=== PATIENT | female | born 1960 | race Caucasian/White ===

== ENCOUNTER → 2019-07-13 09:56 | Outpatient (BNVA) | payer MEDICAID, SELFPAY | PROVIDERS: Family Provider Physician Assistant Medical; PCP Physician Assistant Medical; Visit Provider Anesthesiology | DX: M54.9 Dorsalgia, unspecified (principal); M54.2 Cervicalgia; G56.03 Carpal tunnel syndrome, bilateral upper limbs; F17.210 Nicotine dependence, cigarettes, uncomplicated; Z79.891 Long term (current) use of opiate analgesic | CPT/HCPCS: 99214 ==

== ENCOUNTER → 2019-08-17 14:57 | Outpatient (BNVA) | payer MEDICAID, SELFPAY | PROVIDERS: Family Provider Physician Assistant Medical; PCP Physician Assistant Medical; Visit Provider Anesthesiology | DX: M54.2 Cervicalgia (principal); M25.511 Pain in right shoulder; M25.512 Pain in left shoulder; M54.9 Dorsalgia, unspecified; F17.210 Nicotine dependence, cigarettes, uncomplicated; Z79.891 Long term (current) use of opiate analgesic; Z71.6 Tobacco abuse counseling | CPT/HCPCS: 99214 ==

== ENCOUNTER → 2019-10-10 09:17 | Outpatient (BNVA) | payer MEDICAID, SELFPAY | PROVIDERS: Family Provider Physician Assistant Medical; PCP Physician Assistant Medical; Visit Provider Anesthesiology | DX: M54.2 Cervicalgia (principal); M54.9 Dorsalgia, unspecified; M25.511 Pain in right shoulder; M25.512 Pain in left shoulder; F17.210 Nicotine dependence, cigarettes, uncomplicated; Z79.891 Long term (current) use of opiate analgesic; Z71.6 Tobacco abuse counseling | CPT/HCPCS: 99214 ==

== ENCOUNTER → 2019-12-05 08:57 | Outpatient (BNVA) | payer MEDICAID, SELFPAY | PROVIDERS: Family Provider Physician Assistant Medical; PCP Physician Assistant Medical; Visit Provider Anesthesiology | DX: M54.2 Cervicalgia (principal); M54.41 Lumbago with sciatica, right side; M54.42 Lumbago with sciatica, left side; M54.9 Dorsalgia, unspecified; F17.210 Nicotine dependence, cigarettes, uncomplicated; Z79.891 Long term (current) use of opiate analgesic | CPT/HCPCS: 99214 ==

== ENCOUNTER → 2020-02-06 08:05 | Outpatient (BNVA) | payer MEDICAID, SELFPAY | PROVIDERS: Family Provider Physician Assistant Medical; PCP Physician Assistant Medical; Visit Provider Anesthesiology | DX: M54.42 Lumbago with sciatica, left side (principal); M54.41 Lumbago with sciatica, right side; M54.2 Cervicalgia; M54.9 Dorsalgia, unspecified; F17.210 Nicotine dependence, cigarettes, uncomplicated; Z79.891 Long term (current) use of opiate analgesic | CPT/HCPCS: 99214 ==

== ENCOUNTER → 2020-02-23 10:08 | Outpatient (BNVA) | payer MEDICAID, SELFPAY | PROVIDERS: Family Provider Physician Assistant Medical; PCP Physician Assistant Medical; Visit Provider Anesthesiology | DX: M54.2 Cervicalgia (principal); M54.41 Lumbago with sciatica, right side; M54.42 Lumbago with sciatica, left side; M54.9 Dorsalgia, unspecified; F17.210 Nicotine dependence, cigarettes, uncomplicated; Z79.891 Long term (current) use of opiate analgesic | CPT/HCPCS: 99214 ==

== ENCOUNTER → 2020-03-14 08:52 | Outpatient (BNVA) | payer MEDICAID, SELFPAY | PROVIDERS: Family Provider Physician Assistant Medical; PCP Physician Assistant Medical; Visit Provider Anesthesiology | DX: M54.9 Dorsalgia, unspecified (principal); M54.2 Cervicalgia; F17.210 Nicotine dependence, cigarettes, uncomplicated; Z79.891 Long term (current) use of opiate analgesic | CPT/HCPCS: 99213; 99214 ==

== ENCOUNTER → 2020-05-09 08:40 | Outpatient (BNVA) | payer MEDICAID, SELFPAY | PROVIDERS: Family Provider Physician Assistant Medical; PCP Physician Assistant Medical; Visit Provider Anesthesiology | DX: M54.9 Dorsalgia, unspecified (principal); M54.2 Cervicalgia; F17.210 Nicotine dependence, cigarettes, uncomplicated; Z79.891 Long term (current) use of opiate analgesic | CPT/HCPCS: 99213; 99214 ==

== ENCOUNTER → 2020-06-05 08:44 | Outpatient (BNVA) | payer MEDICAID, SELFPAY | PROVIDERS: Family Provider Physician Assistant Medical; PCP Physician Assistant Medical; Visit Provider Nurse Practitioner | DX: M54.41 Lumbago with sciatica, right side (principal); M54.42 Lumbago with sciatica, left side; M54.9 Dorsalgia, unspecified; M54.2 Cervicalgia; F17.210 Nicotine dependence, cigarettes, uncomplicated; Z79.891 Long term (current) use of opiate analgesic; Z71.6 Tobacco abuse counseling | CPT/HCPCS: 99213; 99214 ==

== ENCOUNTER → 2020-07-10 09:43 | Outpatient (BNVA) | payer MEDICAID, SELFPAY | PROVIDERS: Family Provider Physician Assistant Medical; PCP Physician Assistant Medical; Visit Provider Nurse Practitioner | DX: M54.9 Dorsalgia, unspecified (principal); M54.2 Cervicalgia; G56.03 Carpal tunnel syndrome, bilateral upper limbs; F17.210 Nicotine dependence, cigarettes, uncomplicated; Z79.891 Long term (current) use of opiate analgesic; Z71.6 Tobacco abuse counseling | CPT/HCPCS: 99213; 99214 ==

== ENCOUNTER → 2020-09-10 12:30 | Outpatient (BNVA) | payer MEDICAID, SELFPAY | PROVIDERS: Family Provider Physician Assistant Medical; PCP Physician Assistant Medical; Visit Provider Anesthesiology | DX: M54.9 Dorsalgia, unspecified (principal); M54.2 Cervicalgia; F17.210 Nicotine dependence, cigarettes, uncomplicated; Z79.891 Long term (current) use of opiate analgesic; Z71.6 Tobacco abuse counseling | CPT/HCPCS: 99214 ==

== ENCOUNTER → 2020-11-14 09:21 | Outpatient (BNVA) | payer MEDICAID, SELFPAY | PROVIDERS: Family Provider Physician Assistant Medical; PCP Physician Assistant Medical; Visit Provider Nurse Practitioner | DX: M54.9 Dorsalgia, unspecified (principal); M54.2 Cervicalgia; F17.210 Nicotine dependence, cigarettes, uncomplicated | CPT/HCPCS: 99212; 99213 ==

== ENCOUNTER → 2020-12-12 10:23 | Outpatient (BNVA) | payer MEDICAID, SELFPAY | PROVIDERS: Family Provider Physician Assistant Medical; PCP Physician Assistant Medical; Visit Provider Nurse Practitioner | DX: M54.9 Dorsalgia, unspecified (principal); M54.2 Cervicalgia; F17.210 Nicotine dependence, cigarettes, uncomplicated; Z79.891 Long term (current) use of opiate analgesic; Z71.6 Tobacco abuse counseling | CPT/HCPCS: 99214 ==

== ENCOUNTER 2022-10-26 07:21 | Outpatient (CLI) | payer MEDICAID, SELFPAY ==
--- NOTE | 2022-10-26 07:34 | MM_ITS ---
WS: [id number] BILATERAL SCREENING DIGITAL TOMOSYNTHESIS MAMMOGRAM WITH CAD HISTORY: SCREENING COMPARISON: 07/25/2020 and 11/24/2018 Bilateral CC and MLO views with tomosynthesis and synthetic mammography submitted. Computer aided det ection analyzed. Breast composition: The breasts are heterogeneously dense, which may obscure small masses. No suspici ous masses, microcalcifications or architectural distortion. Benign scattered calcifications LEFT leon ast. MM/[place] [id number] IMPRESSION: BI-RADS: 2-Benign FOLLOW UP: 1 Year Follow-up
== END 2022-10-26 07:22 | disposition home or self-care (01) ==
LOC: RAD 07:24
PROVIDERS: PCP Family Medicine; Visit Provider Family Medicine
DX: Z12.31 Encounter for screening mammogram for malignant neoplasm of breast (principal)
CPT/HCPCS: 77063; 77067

== ENCOUNTER 2024-06-22 19:42 | Emergency (ER) | payer MEDICAID, SELFPAY ==
--- NOTE | 2024-06-22 19:50 | XRR_ITS ---
PROCEDURE INFORMATION: Exam: XR Chest Exam date and time: 06/22/2024 8:30 PM Age: 63 years old Clinical indication: Other: Weakness TECHNIQUE: Imaging protocol: Radiologic exam of the chest. Views: 1 view. COMPARISON: CR XR chest 1V [id number] 01/12/2019 1:48 PM FINDINGS: Lungs: Unremarkable. No consolidation. Pleural spaces: Unremarkable. No pleural effusion. No pneumothorax. Heart/Mediastinum: Unremarkable. No cardiomegaly. Bones/joints: Unremarkable. Other findings: Stable strandy opacities are seen in the left lower likely representing scarring. XR/XR chest 1V portable [id number] IMPRESSION: There are no acute chest findings. Stable appearance of the chest compared with 01/12/2019.
--- NOTE | 2024-06-22 19:52 | ED_ITS ---
HPI - Syncope 2 General: Chief Complaint: Syncope Stated Complaint: Syncope, Poss UTI, Time Seen by Provider: 06/22/24 19:47 History of Present Illness: 63-year-old female who was at home and s tood up and had a syncopal episode. EMS reports that when they arrived she was slightly hypotensive. She has received some fluids. Blood pressures improved. She says she does not feel bad. She does think she may have a UTI though. She says the last time this happened she had a UTI. She has no chest pain. No abdominal pain. She had some nausea but is no longer nauseous. No chest pain. No altered mental status. No focal motor deficits. No fevers. No cough. Related Data Home Medications Medication Instructions Recorded Confirmed clopidogrel 75 mg tablet (Plavix) 75 mg PO ONCE 07/12/19 12/12/20 metformin 500 mg tablet 500 mg PO BID 07/12/19 12/12/20 rosuvastatin 40 mg tablet 40 mg PO ONCE 07/12/19 12/12/20 venlafaxine 150 mg 150 mg PO QAM 07/12/19 12/12/20 capsule,extended release 24 hr (Effexor XR) venlafaxine 75 mg capsule,extended 75 mg PO QAM 07/12/19 12/12/20 release 24 hr (Effexor XR) aripiprazole 5 mg tablet 5 mg PO DAILY 10/10/19 12/12/20 aspirin 81 mg chewable tablet 81 mg PO DAILY 10/10/19 12/12/20 amlodipine 10 mg tablet 10 mg PO DAILY 06/05/20 12/12/20 gabapentin 100 mg capsule 100 mg PO .4 daily 11/14/20 12/12/20 gabapentin 800 mg tablet 800 mg PO .4 day 11/14/20 12/12/20 glipizide 5 mg tablet 5 mg PO DAILY 11/14/20 12/12/20 lisinopril 2.5 mg tablet 2.5 mg PO DAILY 11/14/20 12/12/20 trazodone 50 mg tablet 25 mg PO ONCE 11/14/20 12/12/20 valacyclovir 500 mg tablet 500 mg PO ONCE 11/14/20 12/12/20 Previous Rx's Medication Instructions Recorded oxycodone 15 mg tablet 15 mg PO QID PRN pain (scale score 12/12/20 4-6) 30 days #120 tabs oxycodone 15 mg tablet 15 mg PO QID PRN pain 30 days #120 12/12/20 tabs tizanidine 4 mg tablet 4 mg PO TID PRN muscle spasticity 12/12/20 #90 tabs cefdinir 300 mg capsule 300 mg PO BID 5 days #10 caps 06/22/24 Allergies Allergy/AdvReac Type Severity Reaction Status Date / Time codeine Allergy ADR-Seizure Verified 12/12/20 10:27 diazepam [From Valium] Allergy Unknown Verified 12/12/20 10:27 ibuprofen Allergy Unknown Verified 12/12/20 10:27 latex Allergy ADR-Itching Verified 12/12/20 10:27 tramadol Allergy ADR-Itching Verified 12/12/20 10:27 oxycodone AdvReac ADR-Itching Verified 12/12/20 10:27 Review of Systems 2 Narrative: Constitutional symptoms: Negative except as documented in HPI. Skin symptoms: Negative except as documented in HPI. Eye symptoms: Negative except as documented in HPI. ENMT symptoms: Negative except as documented in HPI. Respiratory symptoms: Negative except as documented in HPI. Cardiovascular symptoms: Negative except as documented in HPI. Gastrointestinal symptoms: Negative except as documented in HPI. Genitourinary symptoms: Negative except as documented in HPI. Musculoskeletal symptoms: Negative except as documented in HPI. Neurologic symptoms: Negative except as documented in HPI. Psychiatric symptoms: Negative except as documented in HPI. Endocrine symptoms: Negative except as documented in HPI. PFSH ED 2 PFSH: Medical History (Updated 06/22/24 @ 23:40 by Cristiana Hopper MD) Opioid contract exists Encounter for long-term use of opiate analgesic Back Pain Neck pain Current tobacco use Bilateral carpal tunnel syndrome Surgical History H/O tubal ligation Previous back surgery Status post carotid surgery Social History Smoking and tobacco/nicotine status: current every day tobacco/nicotine user cigarettes Packs smoked per day: 1 Alcohol intake: never Substance/Drug Use: never Physical Exam 2 Narrative: EXAM NARRATIVE: General: Alert, no acute distress. Skin: Warm, dry. Head: Normocephalic, atraumatic. Neck: Supple, trachea midline. Eye: Extraocular movements are intact. Ears, nose, mouth and throat: mucosa moist. Cardiovascular: Regular, Normal peripheral perfusion. Respiratory: Lungs are clear to auscultation, respirations are non-labored, breath sounds are equal, Symmetrical chest wall expansion. Gastrointestinal: Soft, Nontender, Non distended Musculoskeletal: Normal ROM, no deformity. Neurological: Alert and oriented, No focal neurological deficit observed. Psychiatric: Cooperative, appropriate mood & affect. Course 2 Vital Signs: Vital signs: Vital Signs Temperature 98.8 F 06/22/24 19:59 Pulse Rate 77 06/22/24 23:00 Respiratory Rate 20 H 06/22/24 19:59 Blood Pressure 116/70 06/22/24 23:00 Pulse Oximetry 91 06/22/24 23:00 Oxygen Delivery Me thod Room Air 06/22/24 20:04 MDM - Syncope Medical Decision Making Medical decision making: Differential diagnosis including but not limited to and based on the above HPI, review of systems and physical exam in this patient with syncope: Vasovagal, orthostatics hypotension, cardiac dysrhythmia, myocardial infarction, infection and hypotension, Orders placed to evaluate differential diagnosis based on the above differential, HPI and physical exam EKG: Time 2000. Rate 79. Normal sinus rhythm, No ST-T changes, no ectopy, normal AL & QRS intervals, This was reviewed and interpreted by myself the ER physician at 2004 Chest x-ray: No acute process. No infiltrate. No pneumothorax. This was reviewed and interpreted by myself the emergency room physician. I also reviewed the radiology report. Lab Review: Laboratory results were reviewed and interpreted by myself the emergency room physician. Mild leukocytosis. No anemia. Mild elevation in her BUN and creatinine. This is at or around her baseline. Serial troponins are negative. Urinalysis shows a mild urinary tract infection. I reviewed the patient's medical record. Reexamination: Patient remained stable. No increased work of breathing. No altered mental status. No focal motor deficits. Assessment and plan: Syncope Urinary tract infection Dehydration ? Finished liter saline bolus started by EMS. IV Rocephin. - Discharged home - Discussed plan with patient. Answered any questions. - Evaluation and treatment of this problem were appropriate in the emergency setting. Lab Data 06/22/24 20:10 06/22/24 20:10 Radiology Impressions Chest X-Ray 06/22/24 19:50 IMPRESSION: There are no acute chest findings. Stable appearance of the chest compared with 01/12/2019. Laboratory Results WBC 12.85 10^3/uL (3.29-11.43) H 06/22/24 20:10 RBC 4.57 10^6/uL (3.85-5.65) 06/22/24 20:10 Hgb 14.40 g/dL (11.27-16.99) 06/22/24 20:10 Hct 42.8 % (36-47) 06/22/24 20:10 MCV 93.7 fl (85-98) 06/22/24 20:10 MCH 31.5 pg (27-33) 06/22/24 20:10 MCHC 33.6 g/dL (30-55) 06/22/24 20:10 RDW 14.7 % (12.1-15.1) 06/22/24 20:10 Plt Count 186 10^3/cmm (157-399) 06/22/24 20:10 MPV 11.2 fL (7.4-10.4) H 06/22/24 20:10 Neut % (Auto) 81.3 % 06/22/24 20:10 Lymph % (Auto) 10.4 % 06/22/24 20:10 [place] % (Auto) 7.3 % 06/22/24 20:10 Eos % (Auto) 0.2 % 06/22/24 20:10 Baso % (Auto) 0.4 % 06/22/24 20:10 Neut # (Auto) 10.44 10^3/uL (1.8-7.7) H 06/22/24 20:10 Lymph # (Auto) 1.3 10^3/uL (0.8-4.8) 06/22/24 20:10 [place] # (Auto) 0.9 10^3/uL (0.2-0.9) 06/22/24 20:10 Eos # (Auto) 0.0 10^3/uL (0.0-0.8) 06/22/24 20:10 Baso # (Auto) 0.1 10^3/uL (0.0-0.1) 06/22/24 20:10 Nucleated RBC % (auto) 0 % 06/22/24 20:10 Nucleated RBCs # 0.0 /100WBC 06/22/24 20:10 Sodium 135 mmol/L (136-145) L 06/22/24 20:10 Potassium 3.7 mmol/L (3.5-5.1) 06/22/24 20:10 Chloride 97 mmol/L (98-107) L 06/22/24 20:10 Carbon Dioxide 25 mmol/L (22-29) 06/22/24 20:10 Anion Gap 16.7 (5-19) 06/22/24 20:10 BUN 14 mg/dL (8-23) 06/22/24 20:10 Creatinine 1.1 mg/dL (0.5-0.9) H 06/22/24 20:10 GFR Calculation 50.0 mL/min (90-130) L 06/22/24 20:10 Glucose 149 mg/dL (65-115) H 06/22/24 20:10 Calculated Osmolality 283 mOsm/kg (285-295) L 06/22/24 20:10 Lactic Acid 1.5 mmol/L (0.5-2.2) 06/22/24 20:10 Calcium 8.9 mg/dL (8.5-10.5) 06/22/24 20:10 Total Bilirubin 0.4 mg/dL (0.15-1.2) 06/22/24 20:10 AST 20 U/L (0-32) 06/22/24 20:10 ALT 27 U/L (0-33) 06/22/24 20:10 Alkaline Phosphatase 130 U/L (35-105) H 06/22/24 20:10 Troponin T Baseline 18 ng/L (0-10) H 06/22/24 20:10 Troponin T 120 Minute 14.26 ng/L (0-10) H 06/22/24 22:50 Delta Troponin T -3.74 ABS# (0-10) L 06/22/24 22:50 Total Protein 6.9 g/dL (6.6-8.7) 06/22/24 20:10 Albumin 4.2 g/dL (3.5-5.2) 06/22/24 20:10 Globulin 2.7 g/dL (1.3-4.6) 06/22/24 20:10 Urine Color Dark yellow (Yellow) A 06/22/24 20:58 Urine Appearance Cloudy (CLEAR) A 06/22/24 20:58 Urine pH 6.0 (5-7) 06/22/24 20:58 Ur Specific [place] 1.022 (1.005-1.030) 06/22/24 20:58 Urine Protein 2+ (Negative) A 06/22/24 20:58 Urine Glucose (UA) Negative (Normal) 06/22/24 20:58 Urine Ketones Trace (Negative) 06/22/24 20:58 Urine Blood Negative (Negative) 06/22/24 20:58 Urine Nitrate Negative (Negative) 06/22/24 20:58 Urine Bilirubin Negative (Negative) 06/22/24 20:58 Urine Urobilinogen 1.0 mg/dL (Negative) 06/22/24 20:58 Ur Leukocyte Esterase Trace (Negative) A 06/22/24 20:58 Urine RBC 3-5 /hpf (0-2) 06/22/24 20:58 Urine WBC 0-5 /hpf (0-5) 06/22/24 20:58 Ur Squamous Epith Cells 11-20 /hpf (0-5) 06/22/24 20:58 Amorphous Sediment Not Reportable 06/22/24 20:58 Urine Bacteria 1+ /hpf (NONE) H 06/22/24 20:58 Hyaline Casts 96.80 /lpf 06/22/24 20:58 Coronavirus (PCR) Negative (Negative) 06/22/24 20:12 Influenza A (PCR) Negative (Negative) 06/22/24 20:12 Influenza Type B (PCR) Negative (Negative) 06/22/24 20:12 RSV (PCR) Negative (Negative) 06/22/24 20:12 All radiology interpretation(s) finalized by discharge Discharge Plan Discharge Patient Disposition: Home Clinical Impression: Syncope, Dehydration, UTI (urinary tract infection) Condition: Stable Prescriptions: New cefdinir 300 mg capsule 300 mg PO BID 5 Days Qty: 10 0RF No Action amlodipine 10 mg tablet 10 mg PO DAILY tizanidine 4 mg tablet 4 mg PO TID PRN (Reason: muscle spasticity) Qty: 90 1RF oxycodone 15 mg tablet 15 mg PO QID PRN (Reason: pain (scale score 4-6)) 30 Days Qty: 120 0RF Rx Instructions: Fill on or after 12/14/20 oxycodone 15 mg tablet 15 mg PO QID PRN (Reason: pain) 30 Days Qty: 120 0RF Rx Instructions: Fill on or after 01/13/21 clopidogrel [Plavix] 75 mg tablet 75 mg PO ONCE metformin 500 mg tablet 500 mg PO BID rosuvastatin 40 mg tablet 40 mg PO ONCE venlafaxine [Effexor XR] 150 mg capsule,extended release 24hr 150 mg PO QAM venlafaxine [Effexor XR] 75 mg capsule,extended release 24hr 75 mg PO QAM aripiprazole 5 mg tablet 5 mg PO DAILY aspirin 81 mg tablet,chewable 81 mg PO DAILY valacyclovir 500 mg tablet 500 mg PO ONCE trazodone 50 mg tablet 25 mg PO ONCE glipizide 5 mg tablet 5 mg PO DAILY lisinopril 2.5 mg tablet 2.5 mg PO DAILY gabapentin 100 mg capsule 100 mg PO .4 daily gabapentin 800 mg tablet 800 mg PO .4 day Discharge Orders: Discharge ED (Routine); Ordered 06/22/24 Ordered By: Cristiana Hopper Referrals: Roger Bernardo [Primary Care Provider] - Discharge Diet: Usual diet Discharge Activity: Increase activity as tolerated Patient Instructions: Syncope (ED), Urinary Tract Infection in Older Adults (ED), Opioid Safety, Pain Management Activity Restrictions/Additional Instructions: Thank you for choosing [facility] for your healthcare needs today. Please realize this is an emergency room and that we are providing you with a medical screening exam and this may not be complete and all inclusive of all the testing and or work up that you may need to determine your ailment or severity of your illness. You have been screened and evaluated and felt safe for discharge. Health conditions do change or evolve sometimes and as such it is important that you follow up with your Primary Doctor to be re checked, 3-5 days is a general good time frame for follow up. 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
[2024-06-22 19:59] VITALS: BP 145/74; PULSE 74; RESP 20; TEMP 37.1; O2SAT 95; BMI 30.7
--- NOTE | 2024-06-22 20:01 | ECG_ITS ---
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 Measurements Intervals [place] Rate: 79 P: 62 AL: 196 QRS: 10 QRSD: 109 T: 56 QT: 429 QTc: 494 Interpretive Statements SINUS RHYTHM LOW QRS VOLTAGE IN PRECORDIAL LEADS [QRS DEFLECTION < 1.0 mV IN CHEST LEADS] INCOMPLETE RIGHT BUNDLE BRANCH BLOCK [90+ ms QRS DURATION, TERMINAL R IN V1/V2, 40+ ms S IN I/aVL/V4/V5/V6] Compared to ECG 01/12/2019 21:52:22 Low QRS voltage now present Myocardial infarct finding no longer present Electronically Signed On 06-22-2024 23:54:33 MEDICAL/SURGERY REGISTERED NURSE by Yasmani Amanda M.D. [email or web address]
[2024-06-22 20:04] VITALS: BP 110/77; PULSE 77; O2SAT 96
[2024-06-22 20:34] VITALS: BP 133/74; PULSE 85; O2SAT 92
[2024-06-22 20:43] LABS: Basophils # 0.1 10^3/uL (0.0-0.1); Basophils % 0.4 %; Eosinophils % 0.2 %; Hematocrit 42.8 % (36-47); Lymphocytes # 1.3 10^3/uL (0.8-4.8); Lymphocytes % 10.4 %; Mean Corpuscular HGB Conc 33.6 g/dL (30-55); Mean Corpuscular Hemoglobin 31.5 pg (27-33); Mean Corpuscular Volume 93.7 fl (85-98); Mean Platelet Volume 11.2 fL (7.4-10.4); Monocytes # 0.9 10^3/uL (0.2-0.9); Monocytes % 7.3 %; Neutrophils # 10.44 10^3/uL (1.8-7.7); Neutrophils % 81.3 %; Nucleated Red Blood Cells % 0 %; Platelet Count 186 10^3/cmm (157-399); Red Blood Count 4.57 10^6/uL (3.85-5.65); Red Cell Distribution Width 14.7 % (12.1-15.1); White Blood Count 12.85 10^3/uL (3.29-11.43)
[2024-06-22 21:05] LABS: Bilirubin Urine Negative (Negative); Blood Urine Negative (Negative); Glucose Urine UA Negative (Normal); Ketones Urine Trace (Negative); Leukocyte Esterase Urine Trace (Negative); Nitrate Urine Negative (Negative); Protein Urine 2+ (Negative); Specific Gravity, Urine 1.022 (1.005-1.030); Urine Appearance Cloudy (CLEAR); Urine Color Dark Yellow (Yellow)
[2024-06-22 21:07] LABS: Alanine Aminotransferase 27 U/L (0-33); Albumin Level 4.2 g/dL (3.5-5.2); Alkaline Phosphatase 130 U/L (35-105); Anion Gap 16.7 (5-19); Aspartate Amino Transferase 20 U/L (0-32); Blood Urea Nitrogen 14 mg/dL (8-23); Calcium 8.9 mg/dL (8.5-10.5); Carbon Dioxide 25 mmol/L (22-29); Chloride 97 mmol/L (98-107); Creatinine Clr Calc Pharmacy 53.2601; Globulin 2.7 g/dL (1.3-4.6); Glucose 149 mg/dL (65-115); Osmolality Calculated 283 mOsm/kg (285-295); Potassium 3.7 mmol/L (3.5-5.1); Sodium 135 mmol/L (136-145); Total Bilirubin 0.4 mg/dL (0.15-1.2); Total Protein 6.9 g/dL (6.6-8.7)
[2024-06-22 21:08] LABS: Lactic Sepsis W/Reflex 1.5 mmol/L (0.5-2.2); Troponin(5th) Baseline 18 ng/L (0-10)
[2024-06-22 21:08] LABS: Covid PCR NEGATIVE (Negative); Influenza A NEGATIVE (Negative); Influenza B NEGATIVE (Negative); Respiratory Syncytial Virus Ce NEGATIVE (Negative)
[2024-06-22 21:09] LABS: Bacteria Urine 1+ /hpf; WBC Urine 0-5 /hpf (0-5)
[2024-06-22 21:34] VITALS: BP 140/80; PULSE 89; O2SAT 92
[2024-06-22 22:30] VITALS: BP 133/74; PULSE 85; O2SAT 92
[2024-06-22] MEDS: cefTRIAXone 1,000 mg SDV 1000 MG IVP (22:57)
[2024-06-22 23:00] VITALS: BP 116/70; PULSE 77; O2SAT 91
[2024-06-22 23:33] LABS: Troponin 5 2HR 14.26 ng/L (0-10)
[2024-06-22 23:34] LABS: Troponin 5 2HR Delta -3.74 ABS# (0-10)
[2024-06-23 00:03] VITALS: BP 122/93; PULSE 62; RESP 18; O2SAT 92
== END 2024-06-23 00:05 | disposition home or self-care (01) ==
PROVIDERS: Emergency Provider Emergency Medicine; PCP Family Medicine
DX: R55 Syncope and collapse (principal); E86.0 Dehydration; N39.0 Urinary tract infection, site not specified; Z11.52 Encounter for screening for COVID-19; Z79.84 Long term (current) use of oral hypoglycemic drugs; Z79.02 Long term (current) use of antithrombotics/antiplatelets; Z79.82 Long term (current) use of aspirin; F17.210 Nicotine dependence, cigarettes, uncomplicated
CPT/HCPCS: 0241U; 36415; 71045; 80053; 81001; 83605; 84484; 85025; 87040; 93005; 96374; 99285; J0696